=== PATIENT | female | born 1985 | race Caucasian/White ===

== ENCOUNTER 2016-12-02 16:03 | Outpatient (CLI) | payer MEDICAID ==
[~2016-12-02] VITALS: Ht 160 cm; Wt 90.4 kg
[~2016-12-02 16:03] MED LIST: ADVIL PRN
[2016-12-02] MEDS ORDERED: PREN-47 PO (16:21)
[2016-12-02 16:22] VITALS: BP 117/69; PULSE 80; RESP 18; Ht 160 cm; Wt 90.4 kg
--- NOTE | 2016-12-02 16:58 | RADRPT ---
PROCEDURE: US OB biophysical profile. CLINICAL INDICATION: decreased movements TECHNIQUE: Multiple sonographic images of the pelvis were obtained. The images were reviewed on a PACS workstation. COMPARISON: No prior studies are available for comparison. FINDINGS: There is a single viable intrauterine gestation. Cardiac activity is present with 137 beats per min shannon. There is a vertex presentation. The placenta is posterior. There is no evidence of placental abruption. There is a slightly increased amount of amniotic fluid with an FRANCISCO = 23.6 cm. Biophysical profile: movement 2/2 tone 2/2. breathing 2/2 FRANCISCO 2/2 Total 10/07 RPTAT: AA . IMPRESSION: Normal biophysical profile. Polyhydramnios. . .Gadiel Mendoza MD, Date Time Electronically viewed and signed by .Gadiel Mendoza MD, MD on 12/02/2016 16:58 .S/
--- NOTE | 2016-12-02 18:05 | TRIAGE ---
OB Triage Datetime Report Generated by CPN: 12/02/2016 18:05 Datetime: 12/02/2016 18:00 Stage of : OB Triage Maternal Assessment Level of Consciousness: Fully Conscious Labor Evaluation Frequency: 3UC/HR Monitor Mode: External Duration (sec)2399: 50-70 Quality: Mild Resting Tone [place]: Relaxed Heart Rate FHR Baseline Rate: 135 Monitor Mode: External US Variability: Moderate 6-25 bpm Accelerations: 15X15 Decelerations: None Pain Assessment Pain Scale: 2 Pain Presence: Intermittent Pain Type: Cramping Pain Location: Abdomen Pain Goal: 3 Pain Relief Measures: Comfort Measures Vaginal Exam Membrane Status: Intact Vaginal Bleeding: None Datetime: 12/02/2016 17:00 Stage of : OB Triage Maternal Assessment Level of Consciousness: Fully Conscious Labor Evaluation Frequency: 2UC/HR Monitor Mode: External Duration (sec)2399: 50-60 Quality: Mild Resting Tone [place]: Relaxed Heart Rate FHR Baseline Rate: 135 Monitor Mode: External US Variability: Moderate 6-25 bpm Accelerations: 15X15 Decelerations: None Category: Category I Pain Assessment Pain Scale: 2 Pain Presence: Intermittent Pain Type: Cramping Pain Location: Abdomen Pain Goal: 3 Pain Relief Measures: Comfort Measures Vaginal Exam Membrane Status: Intact Vaginal Bleeding: None Datetime: 12/02/2016 16:19 Assessment Type: Triage Maternal Assessment Level of Consciousness: Fully Conscious DTR's/Clonus: DTRs 2+; No Clonus Headache: Denies Blurred Vision: No Respiratory Effort: Unlabored; Regular Rhythm; Equal Expansion Breath Sounds, Left: Clear and Equal Breath Sounds, Right: Clear and Equal Nausea/Vomiting: Denies RUQ Epigastric Pain: Denies Lower Extremities Edema: None Degree: None Upper Extremities Edema: None Degree: None Facial Edema: None Fall Risk Assessment History of Falling: (0) No Secondary Diagnosis: (0) No Ambulatory Aid: (0) Bedrest/Nurse Assist IV Therapy: (0) No Gait: (0) Normal/Bedrest/Immobile Mental Status: (0) Oriented to Own Ability Fall Score: 0 Fall Risk Score Definition: No Risk: No action required Datetime: 12/02/2016 16:18 Time of Arrival: 12/02/2016 15:50 EGA: 38.3 Arrived By: Ambulatory Arrived From: Other Unit in Hospital Chief Complaint: PT SENT FROM NST CLINIC FOR NON REACTIVE NST Movement: Decreased Contractions: Denies/Absent Rupture of Membranes: Denies Vaginal Bleeding: None Vaginal Discharge: Denies Recent Sexual Intercouse: Denies Abdominal Trauma: Not Applicable Patient Complaints: None Time Provider Notified: 12/02/2016 15:50 Provider Notified: [facility] Initial Plan: BPP/NST Datetime: 12/02/2016 16:11 Monitor Mode: External US
--- NOTE | 2016-12-02 18:25 | PN ---
Triage Information Date/Time Reason for visit: Uterine contractions Weeks of Gestation 38 weeks 3 days /Para Diabetes: none Hypertention: none Objective Vital Signs Date Time Temp Pulse Resp B/P Pulse Ox O2 Delivery O2 Flow Rate FiO2 12/02/16 16:22 98.3 80 18 117/69 98 Room Air Heart Rate: 130's Contractions: >10 Minutes Apart Results/Medications Imaging Results Biophysical profile10/07 lipid instructions given advised follow-up at the clinic return to the hospital if any contractions or any other concerns Disposition: Discharge Assessment/Plan Labor instructions given advised if no further contraction continue follow-up at the clinic AMMY WRAY MD Dec 02, 2016 18:25
== END 2016-12-02 18:15 | disposition home or self-care (01) ==
LOC: OBT 16:03 → L-D 16:04 → OBT 18:15
PROVIDERS: ATTEND Obstetrics & Gynecology
DX: O62.9 Abnormality of forces of labor, unspecified (principal); Z3A.38 38 weeks gestation of pregnancy
CPT/HCPCS: 76818; Z7500; G0463

== ENCOUNTER 2016-12-06 05:20 | Inpatient (IN) | payer MEDICAID ==
[2016-12-06] VITALS (10 sets, daily range): BP systolic 109–139; BP diastolic 64–87; PULSE 69–94; RESP 18–20; Ht 157.5 cm; Wt 90.1 kg
[~2016-12-06] VITALS: Ht 157.5 cm; Wt 90.1 kg
[~2016-12-06 05:20] MED LIST changes: -ADVIL PRN; +PREN-47 PO
[2016-12-06] MEDS ORDERED: CEFAZOLIN 2 GM/50 ML (PMX) 50 ML IV SCH (06:00)
[2016-12-06] MEDS ORDERED: METHYLERGONOVINE 0.2 MG INJ IM PRN ×2 (06:00→12:30)
[2016-12-06] MEDS ORDERED: OXYTOCIN 30 UNITS/LR 500 ML IV SCH (06:00)
[2016-12-06] MEDS ORDERED: OXYTOCIN 30 UNITS/LR 500 ML IV PRN ×2 (06:00→12:30)
[2016-12-06] MEDS ORDERED: MISOPROSTOL 200 MCG TAB PR PRN ×2 (06:00→12:30)
[2016-12-06] MEDS ORDERED: CARBOPROST 250 MCG INJ IM PRN ×2 (06:00→12:30)
[2016-12-06] MEDS ORDERED: LACTATED RINGER'S 1,000 ML IV ONE (06:30)
[2016-12-06] MEDS ORDERED: LACTATED RINGER'S 1,000 ML IV SCH (06:30)
[2016-12-06 06:34] LABS: BASOPHILS % 0.2 % (0.0-2.0); EOSINOPHILS # 0.1 10^3/ul (0.0-0.5); EOSINOPHILS % 0.6 % (0.0-7.0); HEMATOCRIT 37.3 % (37.0-47.0); HEMOGLOBIN 12.8 g/dl (12.0-16.0); LYMPHOCYTES # 4.1 10^3/ul (0.8-2.9); LYMPHOCYTES % 35.9 % (15.0-51.0); MEAN CORPUSCULAR HEMOGLOBIN 29.4 pg (29.0-33.0); MEAN CORPUSCULAR HGB CONC 34.3 g/dl (32.0-37.0); MEAN CORPUSCULAR VOLUME 85.6 fl (82.0-101.0); MEAN PLATELET VOLUME 9.5 fl (7.4-10.4); MONOCYTE # 0.7 10^3/ul (0.3-0.9); MONOCYTES % 6.5 % (0.0-11.0); NEUTROPHIL # 6.4 10^3/ul (1.6-7.5); NEUTROPHILS % 56.4 % (39.0-77.0); PLATELET COUNT 263 10^3/UL (140-415); RED BLOOD COUNT 4.36 10^6/ul (4.20-5.40); RED CELL DISTRIBUTION WIDTH 13.8 % (11.5-14.5); WHITE BLOOD COUNT 11.4 10^3/ul (4.8-10.8)
[2016-12-06 06:55] LABS: INR 0.94; PROTIME 12.6 Sec (12.2-14.2)
[2016-12-06] MEDS ORDERED: EPHEDrine SULFATE 50 MG/5 ML SYG ONE (07:00)
[2016-12-06] MEDS ORDERED: CEFAZOLIN 1 GM INJ ONE (07:00)
[2016-12-06] MEDS ORDERED: OXYTOCIN 30 UNITS/LR 500 ML BAG IV ONE (07:00)
[2016-12-06] MEDS ORDERED: morphine SULFATE/PF (10 MG/10 ML) INJ ONE (08:44)
[2016-12-06] MEDS ORDERED: PHENYLephrine (100 MCG/ML) 5ML SYG ONE ×2 (08:45→09:41)
--- NOTE | 2016-12-06 09:56 | HP ---
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 Rubella: immune RPR/VDRL: Negative GBS Status: Negative HBsAG: Negative OB Admission Exam Vital Signs Vital Signs Vital Signs Date Time Temp Pulse Resp B/P Pulse Ox O2 Delivery O2 Flow Rate FiO2 12/06/16 06:03 98.2 85 18 129/84 Room Air Physical Exam HEENT: WNL Heart: Rhythm Normal Lungs: Clear, Equal Abdomen: WNL Extremities: Normal Reflexes: Normal Cervical Dilatation: None Membranes: Intact Heart Rate: 130's Accelerations: Accelerations Present Varibility: Moderate Contractions on Admission: >10 Minutes Apart Intensity: Mild Last 72 hours Lab Results CBC & BMP 12/06/16 06:00 OB Assessment/Plan Reason for admission: other (31 y/o G2 P/1 hx of previous c section admitted at 39 weeks gestation for repeat c section) Induction Method: other (32 weeks female admitted at 39 weeks gestation EDC 12/13/2016 previous undergo repeat generally signed consent for tubal ligation but changed her mind prior to the surgery application of the including but not limited to bowel and bladder injury infection hemorrhage and hematoma, is been explained to the patient she would like to proceed with the operation) AMMY WRAY MD Dec 06, 2016 08:58
--- NOTE | 2016-12-06 10:13 | OPR ---
Operative Report Planned Procedure Free Text/Dictation 31 years old history of previous admitted at 39 weeks gestation for repeat Procedure date Dec 06, 2016 Procedure(s) Repeat Performed by see signature line Assisting provider: ELOISA PARHAM MD Anesthesiologist: JUSTEN FERMIN Pre-procedure diagnosis 39 weeks . Previous admitted for repeat section Anesthesia Type: spinal Procedure Description Under satisfactory [spinal] anesthesia, the patient was prepped and draped and placed in a supine position, tilted to the left. Pfannenstiel incision was made , carried through the subcutaneous tissue. Bleeders brought under control with electrocautery. Fascia incised to the length of the incision. Rectus muscles from the fascia, divided midline. Peritoneum exposed, entered through a transverse incision. Exploration of abdomen revealed gravid uterus normal- appearing tubes and ovaries. Bladder flap was developed. Transverse incision was made in the lower segment of the uterus. Amniotic sac ruptured. Clear amniotic fluid noted. Light baby boy was delivered from unengaged vertex [] Nasal oropharyngeal suction was performed. baby handed to the team for immediate attention patient received 20 units of. Pitocin, placenta was delivered manually intact. Uterine cavity was cleaned with wet sponge and drainage established. Uterus closed in 2 layers using Monocryl #1 in continuous fashion. Peritoneal cavity irrigated with warm saline. Sponge, needle and instrument count reported to be correct. Abdominal peritoneum closed with [2-0 chromic catgut] continuously. Rectus muscle approximated with [2-0 chromic catgut]. Fascia closed with [#1 PDS], cutaneous tissue approximated with few interrupted 2-0 chromic catgut suture skin closed with N sorb. Estimated blood loss [600]mL. Urine bag contained [200]mL of clear urine patient tolerated procedure well transferred to recovery room in good condition. Post-Procedure Findings: Live Baby boy 9 and 9 Estimated blood loss: other (600 cc) Specimen(s): no Grafts/Implants: no Complication(s): no Pt Condition post procedure: stable Physician Certification I, the undersigned physician, hereby certify that I have discussed the procedure described in this consent form with this patient (or the patient's legal leasing representative), including: * The risk and benefits of the procedure; * Any adverse reactions that may reasonably be expected to occur; * Any alternative efficacious methods of treatment which may be medically viable ; * The potential problems that may occur during recuperation; * Potential for blood transfusion and associated risks/benefits; and * Any research or economic interest I may have regarding this treatment. I further certify that the patient/legally responsible person was encouraged to ask question and that all questions were answered. AMMY WRAY MD Dec 06, 2016 10:13
[2016-12-06] MEDS ORDERED: ZOLPIDEM 5 MG TAB PO PRN (12:00)
[2016-12-06] MEDS ORDERED: METOCLOPRAMIDE 10 MG INJ IV PRN (12:00)
[2016-12-06] MEDS ORDERED: DIPHENHYDRAMINE 50 MG INJ IV PRN ×2 (12:00)
[2016-12-06] MEDS ORDERED: HYDROmorphONE 1 MG/ML SYG IV PRN ×2 (12:00)
[2016-12-06] MEDS ORDERED: FENTAnyl 50 MCG/ML VIAL IV PRN ×2 (12:00)
[2016-12-06] MEDS ORDERED: KETOROLAC 30 MG INJ IV PRN (12:00)
[2016-12-06] MEDS ORDERED: NALOXONE (0.4 MG/ML) INJ IV PRN (12:00)
[2016-12-06] MEDS ORDERED: ONDANSETRON 4 MG INJ IV PRN ×2 (12:00)
[2016-12-06] MEDS ORDERED: HYDROmorphONE (0.2 MG/ML) 10ML SYG IV PRN ×2 (12:00)
[2016-12-06] MEDS ORDERED: LANOLIN 7 GM TUBE TOP PRN (12:30)
[2016-12-06] MEDS ORDERED: CEFAZOLIN 1 GM/50 ML (PMX) 50 ML IVPB SCH (12:30)
[2016-12-06] MEDS ORDERED: OXYCODONE/ACETAMINOPHEN (5/325) TAB PO PRN ×2 (12:30)
[2016-12-06] MEDS ORDERED: HYDROCODONE/APAP (5/325) TAB PO PRN (12:30)
[2016-12-06] MEDS: OXYTOCIN 30 UNITS/LR 500 ML IV SCH ×3 (14:21→22:41)
[2016-12-07] MEDS: OXYTOCIN 30 UNITS/LR 500 ML IV SCH ×4 (02:48→12:12)
[2016-12-07] MEDS: KETOROLAC 30 MG INJ IV PRN ×2 (04:02→09:56)
[2016-12-07 04:05] VITALS: BP 108/63; PULSE 75; RESP 19
[2016-12-07 08:00] VITALS: BP 116/76; RESP 18
[2016-12-07 08:41] LABS: BASOPHILS % 0.2 % (0.0-2.0); EOSINOPHILS % 0.3 % (0.0-7.0); HEMATOCRIT 32.5 % (37.0-47.0); HEMOGLOBIN 11.3 g/dl (12.0-16.0); MEAN CORPUSCULAR HEMOGLOBIN 30.2 pg (29.0-33.0); MEAN CORPUSCULAR HGB CONC 34.8 g/dl (32.0-37.0); MEAN CORPUSCULAR VOLUME 86.9 fl (82.0-101.0); MEAN PLATELET VOLUME 9.4 fl (7.4-10.4); MONOCYTE # 0.8 10^3/ul (0.3-0.9); MONOCYTES % 6.5 % (0.0-11.0); NEUTROPHIL # 8.6 10^3/ul (1.6-7.5); NEUTROPHILS % 68.6 % (39.0-77.0); PLATELET COUNT 229 10^3/UL (140-415); RED BLOOD COUNT 3.74 10^6/ul (4.20-5.40); RED CELL DISTRIBUTION WIDTH 13.6 % (11.5-14.5); WHITE BLOOD COUNT 12.5 10^3/ul (4.8-10.8)
[2016-12-07] MEDS: SENNA/DOCUSATE NA (8.6MG/50MG) TAB PO SCH ×2 (09:01→21:44)
[2016-12-07] MEDS: IBUPROFEN 600 MG TAB PO SCH ×3 (12:00→23:26)
--- NOTE | 2016-12-07 12:21 | QN ---
Documentation Comment PoD#1 is stable afebrile No VB +Flatus+Adequate urine VS stable Gen NAD Abd soft NT ND dressing to be removed Genitalia No blood at perinium --->Ambulation --->regular diet GAYE LUCAS M.D. Dec 07, 2016 12:21
[2016-12-07] MEDS: HYDROCODONE/APAP (5/325) TAB PO PRN ×2 (13:57→17:42)
[2016-12-07 16:00] VITALS: BP 120/75; PULSE 75; RESP 18
[2016-12-07 20:00] VITALS: BP 127/76; PULSE 89; RESP 20
[2016-12-08] MEDS: HYDROCODONE/APAP (5/325) TAB PO PRN ×3 (04:02→21:25)
[2016-12-08 04:59] VITALS: BP 119/64; PULSE 69; RESP 20
[2016-12-08] MEDS: IBUPROFEN 600 MG TAB PO SCH ×3 (05:14→17:24)
[2016-12-08 08:30] VITALS: BP 124/76; RESP 16
[2016-12-08] MEDS: SENNA/DOCUSATE NA (8.6MG/50MG) TAB PO SCH ×2 (09:00→21:00)
[2016-12-08] MEDS ORDERED: INFLUENZA VIRUS VACCINE 0.5 ML (DISPENSING) IM* ONE (09:00)
--- NOTE | 2016-12-08 12:09 | CONS ---
Date/Time of Note Date/Time of Note DATE: 12/08/16 TIME: 12:08 Consultation Date/Type/Reason Admit Date/Time Dec 06, 2016 at 05:20 Initial Consult Date 12/07/16 Type of Consultation: Anesthesiology Reason for Consultation follow up 24 HR Interval Summary Free Text/Dictation Pt seen and examined on 12/07/16 is POD#1 s/p repeat c/s. Pt had spinal duramorph injection and states states her pain is adequately controlled. No N/V/ D/C/CAMERON/Numbness in lower extremities. Will follow up. Constitutional: improved, no complaints Exam/Review of Systems Vital Signs Vitals Vital Signs Date Time Temp Pulse Resp B/P Pulse Ox O2 Delivery O2 Flow Rate FiO2 12/08/16 08:30 99.1 16 124/76 Room Air 12/08/16 04:59 69 12/06/16 12:00 98 Intake and Output 12/07/16 12/07/16 12/08/16 14:59 22:59 06:59 Intake Total 720 ml Output Total 1400 ml Balance -680 ml Results Result Diagram: 12/07/16 0807 Results 24 hrs Laboratory Tests Test 12/07/16 15:12 12/07/16 20:30 12/08/16 06:36 12/08/16 08:03 Bedside Glucose 137 120 89 Lab Scanned Report REFERENCE LAB Test 12/08/16 11:25 Bedside Glucose 77 Medications Medications Current Medications Acetaminophen/ Hydrocodone Bitart ([place] (5/325)) 1 tab Q4H PRN PO PAIN LEVEL 4 -6 Last administered on 12/08/16 04:02; Admin Dose 1 TAB; Start 12/06/16 at 12: 30 Acetaminophen/ Hydrocodone Bitart ([place] (5/325)) 2 tab Q4H PRN PO PAIN LEVEL 7 -10; Start 12/06/16 at 12:30 Oxycodone/ Acetaminophen (Percocet (5/ 325)) 1 tab Q4H PRN PO PAIN LEVEL 4-6; Start 12/06/16 at 12:30 Oxycodone/ Acetaminophen (Percocet (5/ 325)) 2 tab Q4H PRN PO PAIN LEVEL 7-10; Start 12/06/16 at 12:30 Ibuprofen (Motrin) 600 mg Q6 PO Last administered on 12/08/16 12:05; Admin Dose 600 MG; Start 12/07/16 at 12:00 Simethicone (Mylicon) 160 mg Q8H PRN PO DISTENSION/GAS/BLOATING; Start at 12:30 Senna/Docusate Sodium (Senokot-S) 1 tab BID PO Last administered on 12/07/16 21:44; Admin Dose 1 TAB; Start 12/07/16 at 09:00 Diphtheria/ Tetanus/Acell Pertussis 0.5 ml 0.5 ml ONCE ONCE IM* ; Start at 09:00; Stop 12/09/16 at 09:01 Oxytocin/Lactated Ringer's 500 ml @ 0 mls/hr ONCE PRN IV For Hemorrhage Management; Start 12/06/16 at 12:30 Methylergonovine Maleate (Methergine) 0.2 mg ONCE PRN IM VAGINAL BLEEDING; Start 12/06/16 at 12:30 Carboprost Tromethamine (Hemabate) 250 mcg ONCE PRN IM VAGINAL BLEEDING; Start 12/06/16 at 12:30 Misoprostol (Cytotec) 1,000 mcg ONCE PRN [place] VAGINAL BLEEDING; Start 12/06/16 at 12:30 JUSTEN FERMIN Dec 08, 2016 12:09
[2016-12-08 16:00] VITALS: BP 121/70; RESP 19
--- NOTE | 2016-12-08 16:04 | QN ---
Documentation Comment Post day 2 VSS Afebrile Abdomen soft, incision dry, good bowel sounds, patient had bowel movement, Extremity normal Plan of a.m. discharge discussed with the patient AMMY WRAY MD Dec 08, 2016 16:04
--- NOTE | 2016-12-08 16:06 | QN ---
Documentation Comment Post day 2 Afebrile VSs Abdomen soft Uterus firm Incision dry Good bowel sounds, patient had normal bowel movement Extremities no Plan of a.m. discharge discussed with the patient AMMY WRAY MD Dec 08, 2016 16:06
[2016-12-08 20:30] VITALS: BP 123/65; PULSE 78; RESP 16
[2016-12-09] MEDS: IBUPROFEN 600 MG TAB PO SCH ×4 (00:04→18:36)
[2016-12-09 04:30] VITALS: BP 117/71; PULSE 78; RESP 18
[2016-12-09 08:15] VITALS: BP 121/82; PULSE 84; RESP 18
[2016-12-09] MEDS: SENNA/DOCUSATE NA (8.6MG/50MG) TAB PO SCH ×3 (08:53→22:33)
[2016-12-09] MEDS ORDERED: DIPHTH/TET/ACEL PERTUSS (ADULT) 0.5 ML VIAL IM* ONE (09:00)
--- NOTE | 2016-12-09 13:12 | QN ---
Documentation Comment Post date 3 Afebrile Vital signs are stable Abdomen soft good bowel sounds had bowel movement Extremities normal Ambulation encouraged Plan of a.m. discharge discussed with the patient AMMY WRAY MD Dec 09, 2016 13:12
[2016-12-09 16:38] VITALS: BP 117/78; PULSE 76; RESP 17
[2016-12-09 20:30] VITALS: BP 121/87; PULSE 76; RESP 16
[2016-12-10] MEDS: IBUPROFEN 600 MG TAB PO SCH ×3 (00:50→12:57)
[2016-12-10 04:30] VITALS: BP 110/66; PULSE 80; RESP 15
[2016-12-10 08:30] VITALS: BP 117/69; PULSE 80; RESP 18
[2016-12-10] MEDS: SENNA/DOCUSATE NA (8.6MG/50MG) TAB PO SCH (09:08)
[2016-12-10 16:41] VITALS: BP 116/68; RESP 18
--- NOTE | 2016-12-10 17:13 | DS ---
Date/Time of Note Date/Time of Note DATE: 12/10/16 TIME: 17:11 Discharge Summary Admission/Discharge Info Admit Date/Time Dec 06, 2016 at 05:20 Discharge Date/Time December 10, 2016 at 1710 Discharge Diagnosis Post repeat day 3 Procedures Repeat Hx of Present Illness 39 weeks history of previous Hospital Course Satisfactory good recovery Home Meds Reported Medications Ibd67-Wytb-Apwzv Acid (Prenata Chewable) 1 Each Tab.chew, 1 TAB PO DAILY, TAB.CHEW 12/02/16 Follow-up Plan Post instructions given to the patient recommended to make appointment to be seen at the clinic in 1 week Primary Care Provider Care Physician No Primary Time spent on discharge: < 30 minutes Pending Labs Laboratory Tests Test 12/09/16 18:35 12/09/16 20:46 12/10/16 08:36 12/10/16 10:37 Bedside Glucose 104mg/dL (70-220) 92mg/dL (70-220) 84mg/dL (70-220) 76mg/dL (70-220) Test 12/10/16 14:08 Bedside Glucose 95mg/dL (70-220) AMMY WRAY MD Dec 10, 2016 17:13
--- NOTE | 2016-12-11 14:49 | NSTRPT ---
NST Information Datetime Report Generated by CPN: 12/11/2016 14:49 Datetime: 12/02/2016 13:46 NST Information EGA: 38.3 Test Number: 2 Time on Monitor: 12/02/2016 14:04 Time off Monitor: 12/02/2016 15:30 NST Duration (Min): 86 Reason for NST: Diabetes Mellitus; Other Reason for NST Other: A1DM Pulse: 75 Resp: 20 SBP: 125 DBP: 69 Test Evaluation NST Interventions: PO Hydration; Reposition Patient; Acoustic Stimulation Patient States Movement: Present Contraction Frequency: occasional FHR Baseline : 150 Variability: Moderate 6-25bpm Accelerations: 10X10 Decelerations: None FHR Category: Category I NST Results: Questionable Comments: To u/s. FRANCISCO 18.2, cephalic presentation. EFM on. Pt to triage for extended monitoring due to accels not meeting 15x15 criteria. Pt has no questions. 1500-NST reviewed by Dr Greenwood, recommends extended monitoring. Dr Gonzalez paged. [id number] to Dr Gonzalez, order received to send pt to triage for NST/BPP and extended EFM, Report called to Giovanna. [id number]-Pt to triage, denies further questions, and has follow up NST appt for 12/05 at 1300 Electronically Signed By E-Signature: with User ID: [id number] Datetime: 11/25/2016 13:19 NST Information EGA: 37.3 Datetime: 11/25/2016 13:12 NST Duration (Min): 60
== END 2016-12-10 17:57 | disposition home or self-care (01) | DRG 766 ==
LOC: L-D 05:20 → PP1 12:51
PROVIDERS: ADMIT Obstetrics & Gynecology; ATTEND Obstetrics & Gynecology
PROC: 3E0P3VZ Introduction of Hormone into Female Reproductive, Percutaneous Approach (ICD-10-PCS; 2016-12-06)
PROC: 10D00Z1 Extraction of Products of Conception, Low, Open Approach (ICD-10-PCS; principal; 2016-12-06 08:00)
DX: O34.211 Maternal care for low transverse scar from previous cesarean delivery (principal); E66.01 Morbid (severe) obesity due to excess calories; O24.429 Gestational diabetes mellitus in childbirth, unspecified control; O99.214 Obesity complicating childbirth; Z68.36 Body mass index [BMI] 36.0-36.9, adult; Z37.0 Single live birth; Z3A.39 39 weeks gestation of pregnancy
CPT/HCPCS: 82962; 85025; 85610; 85730; 86592; 86850; 86900; 86901; 90686; 90715; 99464; J0690; J1885; J2274; J2370; J2405; J2590; J7120

== ENCOUNTER 2018-07-16 17:04 | Inpatient (IN) | payer MEDICAID ==
[~2018-07-16] VITALS: Ht 160 cm; Wt 94.4 kg
[2018-07-16 17:26] VITALS: BP 121/76; PULSE 76; RESP 18; Ht 160 cm; Wt 94.4 kg
[2018-07-16] MEDS: LACTATED RINGER'S 1,000 ML IV SCH ×2 (19:05→22:24)
[2018-07-16] MEDS ORDERED: OXYTOCIN 30 UNITS/LR 500 ML BAG IV ONE (21:00)
[2018-07-16] MEDS ORDERED: METHYLERGONOVINE 0.2 MG INJ ONE (21:00)
[2018-07-16] MEDS ORDERED: CARBOPROST 250 MCG INJ ONE (21:00)
--- NOTE | 2018-07-16 21:56 | HP ---
Date/Time of Note Date/Time of Note DATE: 07/16/18 TIME: 21:51 OB - History Hx of Present Free Text/Dictation c/o contractionts and decrease movements Last Menstrual Period: Nov 17, 2017 Estimated Due Date: Aug 24, 2018 Care: Good Care Obstetrical Complications: Gestational Diabetes Past Family/Social History * Past Medical, Surgical, Family and Obstetric Histories reviewed from chart. OB Admission Exam Vital Signs Vital Signs Vital Signs Date Temp Pulse Resp B/P (MAP) Pulse Ox O2 O2 Flow FiO2 Time Delivery Rate 07/16/18 98.0 76 18 121/76 17:26 (91) Physical Exam HEENT: WNL Abdomen: WNL Extremities: Normal Cervical Dilatation: None Membranes: Intact Contractions on Admission: 6-10 Minutes Apart Last 72 hourBlood Glucose Bedside Glucose - 72 Hours Test 07/16/18 18:22 Bedside Glucose 95 mg/dL (70-220) OB Assessment/Plan Reason for admission: other (33 years old IUP 34 3/7, decrease movements, r/o pretherm labor, polyhidramnous, BPP 8/8) Plan: Other (Admit ton L@D, observation, IV hydratin, accu check, NST, repeat BPP tmorrow, UA/UC) BEULAH JUAN MD July 16, 2018 21:56
[2018-07-16] MEDS ORDERED: ACETAMINOPHEN 325 MG TAB PO PRN (22:30)
[2018-07-17] VITALS (11 sets, daily range): BP systolic 118–145; BP diastolic 69–87; PULSE 106–129; RESP 18–20
[2018-07-17] MEDS: LACTATED RINGER'S 1,000 ML IV SCH ×5 (02:30→15:23)
[2018-07-17] MEDS ORDERED: ACCU-CHEK XX SCH ×2 (06:00→09:35)
[2018-07-17] MEDS ORDERED: EPHEDrine SULFATE 50 MG/5 ML SYG ONE (07:00)
[2018-07-17] MEDS ORDERED: BETAMET NA PHOS/AC(6 MG/ML) 2 ML INJ SYG IM ONE (08:00)
[2018-07-17] MEDS ORDERED: GLUCOSE GEL 15 GRAM TUBE BUCCAL PRN (09:30)
[2018-07-17] MEDS ORDERED: GLUCAGON 1 MG INJ IM PRN (09:30)
[2018-07-17] MEDS ORDERED: DEXTROSE 50% 50 ML SYRINGE IV PRN ×2 (09:30)
[2018-07-17] MEDS ORDERED: GLUCOSE GEL 15 GRAM TUBE PO PRN ×2 (09:30)
--- NOTE | 2018-07-17 10:04 | PN ---
Date/Time of Note Date/Time of Note DATE: 07/17/18 TIME: 10:03 OB Subjective Subjective Subjective 33-year-old 3 para 2 at 34 weeks and 5 days of gestation with estimated date of delivery August 24, 2018 Patient presents with chief complaint of decreased movement, noted to have nonreactive NST She presented with uterine contractions, denies any vaginal bleeding or leaking fluid She reports positive movement Patient is gestational diabetic diet controlled Past obstetrical history significant for x2 OB Objective Objective Objective PROCEDURE: US OB biophysical profile. CLINICAL INDICATION: decreased movements, labor TECHNIQUE: Multiple sonographic images of the pelvis were obtained. The image s were reviewed on a PACS workstation. COMPARISON: US PELVIS 07/16/2018 FINDINGS: There is a single live intrauterine gestation. Cardiac activity is present with 146 beats per minute. There is a vertex presentation. The placenta is anterior. There is no evidence of placental abruption. FRANCISCO = 27.1 cm. Biophysical profile: movement 2/2 tone 2/2. breathing 2/2 FRANCISCO 2/2 Total 10/07 RPTAT: AA . IMPRESSION: Normal biophysical profile. Polyhydramnios, worsened. . .Gadiel Mendoza MD, Date Time Electronically viewed and signed by .Gadiel Mendoza MD, on 07/17/2018 07:37 .S/ CC: BEULAH JUAN MD [phone] PROCEDURE: ULTRASOUND OBSTETRICAL CLINICAL INDICATION: 33-year-old female for size and date determination. TECHNIQUE: Multiple sonographic images of the pelvis and gravid uterus were obtained. The images were reviewed on a PACS workstation. COMPARISON: Ultrasound biophysical profile obtained concurrently; ultrasound OB July 16, 2018. FINDINGS: Cervix: The cervix is closed with a length of 4.1 cm. Gestation: There is a single viable intrauterine gestation. Cardiac activity is present with 154 beats per minute. There is a vertex presentation. Placenta: The placenta is anterior. There is no evidence for an abruption or placenta previa. Amniotic Fluid: There is a increased amount of amniotic fluid with an FRANCISCO = 27.2 cm. The maximal vertical pocket is 11.3 cm. Measurements: BPD = 8.55 cm 34 weeks 3 days HC = 30.89 cm 34 weeks 3 days AC = 34.81 cm 38 weeks 5 days FL = 6.86 cm 35 weeks 2 days Gestational age: AUA estimated gestational age: 35 weeks and 5 days LMP estimated gestational age: 34 weeks and 4 days AUA estimated date of delivery: August 16, 2018 EFW = 6lb 12oz, 3066 +/- 460 g, 96%ile based on LMP age. IMPRESSION: 1. Single viable intrauterine gestation of 35 weeks 5 days with vertex presentation. Note that the abdominal circumference is enlarged which may be secondary to maternal gestational diabetes. Clinical correlation is necessary. 2. The estimated weight is 3066 +/- 460 g (6 lb 12 oz). The GP is 96%. 3. Polyhydramnios. .Jesus Domingo MD, Date Time Electronically viewed and signed by .Jesus Domingo MD, on 07/17/2018 09:15 .M/ CC: ADELE PERAZA MD [phone] HEENT: WNL Heart: Rhythm Normal Lungs: Clear, Equal Abdomen: WNL Extremities: Normal Reflexes: Normal Cervical Dilatation: None Membranes: Intact Heart Rate: 140's Accelerations: Accelerations Present Decelerations: No Decelerations Varibility: Moderate Contractions on Admission: 6-10 Minutes Apart Intensity: Mild OB Assessment/Plan Reason for admission: other ( contractions, nonreactive NST, polyhydramnios) Other plan: 3 para 2 at 34 weeks and 5 days of gestation with GDM A1 admitted for contractions, polyhydramnios, nonreactive NST Continuous heart rate monitoring Steroids for lung maturity Perinatology consultation Copies To: CC: IRIS REBOLLEDO ; ADELE PERAZA MD July 17, 2018 10:04
[2018-07-17] MEDS ORDERED: MAGNESIUM SULFATE 20 GM/500 ML 500 ML IV SCH (10:17)
[2018-07-17] MEDS ORDERED: MAGNESIUM SULFATE 4 GM/100 ML 100 ML IV SCH (10:30)
[2018-07-17] MEDS ORDERED: CA GLUCONATE (GM) 10% 10ML INJ IV PRN (10:30)
[2018-07-17] MEDS ORDERED: INSULIN ASPART [NOVOLOG] 3 ML PEN SC SCH (13:00)
[2018-07-17] MEDS ORDERED: NIFEdipine 10 MG CAP PO SCH (14:00)
[2018-07-17] MEDS ORDERED: TERBUTALINE 1 MG/ML INJ SC ONE (15:30)
[2018-07-17] MEDS ORDERED: OXYTOCIN 30 UNITS/LR 500 ML IV SCH ×2 (15:30→18:23)
[2018-07-17] MEDS ORDERED: CARBOPROST 250 MCG INJ IM PRN ×2 (15:30→18:30)
[2018-07-17] MEDS ORDERED: MISOPROSTOL 200 MCG TAB PR PRN ×2 (15:30→18:30)
[2018-07-17] MEDS ORDERED: CEFAZOLIN 2 GM/50 ML (PMX) 50 ML IVPB SCH (15:30)
[2018-07-17] MEDS ORDERED: OXYTOCIN 30 UNITS/LR 500 ML IV PRN ×2 (15:30→18:30)
--- NOTE | 2018-07-17 16:15 | PREAC ---
Date/Time of Note Date/Time of Note DATE: 07/17/18 TIME: 16:13 Anesthesia Eval and Record Evaluation Time Pre-Procedure Interview DATE: 07/17/18 TIME: 16:13 Age 33 Sex female NPO: 8 hrs Preoperative diagnosis in labor with previous C/S Planned procedure Repeat C/S Past Medical History Past Medical History: Includes GI: Obesity : : (3), Para: (2), Gestational diabetes Surgery & Anesthesia Issues No known issue Meds Anticoagulation: No Beta Sangeetha within 24 hr: No Reason Beta Sangeetha not given: Pt. not on B-Sangeetha Reported Medications Zuj21-Nydt-Nhhty Acid (Prenata Chewable) 1 Each Tab.chew, 1 TAB PO DAILY, TAB.CHEW 12/02/16 Current Medications Lactated Ringer's 1,000 ml @ 250 mls/hr Q4H IV Last administered on 07/17/18at 15:23; Admin Dose 250 MLS/HR; Start 07/16/18 at 19:00 Lactated Ringer's 1,000 ml @ 125 mls/hr Q8H IV Last administered on 07/17/18at 06:09; Admin Dose 125 MLS/HR; Start 07/16/18 at 22:03 Prenat Multivit/ Wireless Network Engineer/Iron/Folic Ac () 1 tab DAILY PO ; Start 07/17/18 at 09:00 Acetaminophen (Tylenol Tab) 650 mg Q4H PRN PO .PAIN OR TEMP; Start 07/16/18 at 22:30 Diagnostic Test (Pha) (Accu-Chek) 1 ea FASTING BLOOD SUGAR XX Last administered on 07/17/18at 07:25; Admin Dose 1 EA; Start 07/17/18 at 06:00 Diagnostic Test (Pha) (Accu-Chek) 1 ea 2 HOURS AFTER MEALS XX ; Start 07/17/18 at 09:35 Insulin Aspart (Novolog Insulin Pen) Check Blood gluc... Q4 SC ; Start 07/17/18 at 13:00 Miscellaneous Information 1 ea NOTE XX ; Start 07/17/18 at 09:30 Glucose (Glutose) 15 gm Q15M PRN PO DECREASED GLUCOSE; Start 07/17/18 at 09:30 Glucose (Glutose) 22.5 gm Q15M PRN PO DECREASED GLUCOSE; Start 07/17/18 at 09:30 Dextrose (D50w Syringe) 25 ml Q15M PRN IV DECREASED GLUCOSE; Start 07/17/18 at 09:30 Dextrose (D50w Syringe) 50 ml Q15M PRN IV DECREASED GLUCOSE; Start 07/17/18 at 09:30 Glucagon (Glucagen) 1 mg Q15M PRN IM DECREASED GLUCOSE; Start 07/17/18 at 09:30 Glucose (Glutose) 15 gm Q15M PRN BUCCAL DECREASED GLUCOSE; Start 07/17/18 at 09:30 Nifedipine (Procardia) 20 mg Q6 PO Last administered on 07/17/18at 13:59; Admin Dose 20 MG; Start 07/17/18 at 14:00 Cefazolin Sodium/ Dextrose 50 ml @ 100 mls/hr ONCE IVPB ; Start 07/17/18 at 15:30 Oxytocin/Lactated Ringer's 500 ml @ 125 mls/hr POST IV ; Start 07/17/18 at 15:30 Oxytocin/Lactated Ringer's 500 ml @ 0 mls/hr ONCE PRN IV .VAGINAL BLEEDING; Start 07/17/18 at 15:30 Carboprost Tromethamine (Hemabate) 250 mcg ONCE PRN IM .VAGINAL BLEEDING; Start 07/17/18 at 15:30 Misoprostol (Cytotec) 1,000 mcg ONCE PRN [place] .VAGINAL BLEEDING; Start 07/17/18 at 15:30 Meds reviewed: Yes Allergies Coded Allergies: No Known Drug Allergy (Verified Allergy, Unknown, 12/06/16) nut - unspecified (Verified Allergy, Unknown, 12/07/16) Allergies Reviewed: Yes Labs/Studies Labs Reviewed: Reviewed by anesthesiologist Result Diagram: 07/17/18 1523 07/17/18 1104 Laboratory Tests 07/17/18 11:04 07/17/18 15:23 test: Positive Pre-procedure Exam Last vitals Vital Signs Date Temp Pulse Resp B/P (MAP) Pulse Ox O2 O2 Flow FiO2 Time Delivery Rate 07/16/18 98.0 76 18 121/76 17:26 (91) Airway: Adequate mouth opening Mallampati: Mallampati II Teeth: Normal Lung: Normal Heart: Normal ASA Physical Status ASA physical status: 2 Emergency: None Planned Anesthetic Neuraxial: Spinal Planned Pain Management Sub-arachniod narcotics Pre-operative Attestations Prior to commencing anesthesia and surgery, the patient was re-evaluated, there was verification of: *The patient's identity *The results of appropriate recent lab work and preoperative vital signs *The above evaluation not changing prior to induction *Anesthetic plan, risk benefits, alternative and complications discussed with patient/family; questions answered; patient/family understands, accepts and wishes to proceed. JAVIER SANTOS MD July 17, 2018 16:15
[2018-07-17] MEDS ORDERED: OXYTOCIN 30 UNITS/LR 500 ML IV ONE (16:20)
[2018-07-17] MEDS ORDERED: ONDANSETRON 4 MG INJ ONE (16:21)
[2018-07-17] MEDS ORDERED: morphine SULFATE/PF (10 MG/10 ML) INJ ONE (16:21)
[2018-07-17] MEDS ORDERED: OXYTOCIN 10 UNIT INJ ONE (16:21)
[2018-07-17] MEDS ORDERED: METOCLOPRAMIDE 10 MG INJ ONE (16:21)
[2018-07-17] MEDS ORDERED: AZITHROMYCIN 500MG/NS (PMX) 250 ML IVPB ONE (16:30)
[2018-07-17] MEDS ORDERED: DEXAMETHASONE 4 MG/ML 1 ML INJ ONE (17:28)
[2018-07-17] MEDS ORDERED: MIDAZOLAM 1 MG/ML 2 ML INJ ONE (17:30)
[2018-07-17] MEDS ORDERED: LACTATED RINGER'S 1,000 ML IV SCH (18:23)
--- NOTE | 2018-07-17 18:28 | OPPN ---
Date/Time of Note Date/Time of Note DATE: 07/17/18 TIME: 18:25 Operative Report Planned Procedure Procedure date July 17, 2018 Procedure(s) Repeat Performed by see signature line Drive In Theater Attendant: YOSEPH FERNANDEZ MD [address] In Theater Attendant none Pre-procedure diagnosis 1.Prior x2 2. labor 3. heart rate tracing category 2 4.Polyhydramnios [id number] Anesthesia Type: [id number] spinal Post-Procedure Post-procedure diagnosis 1.Prior x2 2. labor 3. heart rate tracing category 2 4.Polyhydramnios Findings Live Baby [girl], Apgars [8] and [9], weight [3955 gr/8 pounds 12 ounces], [vertex] presentation EBL 500 cc IV fluid 1800 cc Urine output 400 cc Patient received Methergine x1, Hemabate x1 and 1000 Cytotec per rectum Estimated Blood Loss: 400 - 500 mls Specimen(s) Placenta Grafts/Implant(s) none Complication(s) none ADELE PERAZA MD July 17, 2018 18:28
[2018-07-17] MEDS ORDERED: ACETAMINOPHEN 325 MG TAB PO PRN (18:30)
[2018-07-17] MEDS ORDERED: METHYLERGONOVINE 0.2 MG INJ IM PRN (18:30)
[2018-07-17] MEDS ORDERED: SENNA/DOCUSATE NA (8.6MG/50MG) TAB PO PRN (18:30)
[2018-07-17] MEDS ORDERED: ONDANSETRON 4 MG INJ IV PRN ×2 (18:30→19:30)
[2018-07-17] MEDS ORDERED: BISACODYL 10 MG SUPP PR PRN (18:30)
[2018-07-17] MEDS: CEFAZOLIN 1 GM/50 ML (PMX) 50 ML IVPB SCH (18:30)
[2018-07-17] MEDS ORDERED: LANOLIN HPA 1 PKT TOP PRN (18:30)
--- NOTE | 2018-07-17 18:30 | OPR ---
Operative Report Planned Procedure Procedure date July 17, 2018 Procedure(s) Repeat Performed by see signature line Put In Beat Adjuster: YOSEPH FERNANDEZ MD Pre-procedure diagnosis 1.Prior x2 2. labor 3. heart rate tracing category 2 4.Polyhydramnios [id number] Anesthesia Type: [id number] spinal Post-Procedure Post-procedure diagnosis 1.Prior x2 2. labor 3. heart rate tracing category 2 4.Polyhydramnios Findings Live Baby [girl], Apgars [8] and [9], weight [3955 gr/8 pounds 12 ounces], [vertex] presentation EBL 500 cc IV fluid 1800 cc Urine output 400 cc Patient received Methergine x1, Hemabate x1 and 1000 Cytotec per rectum Estimated Blood Loss: 500 - 600 mls Specimen(s) Placenta Grafts/Implant(s) none Complication(s) none Pt Condition post procedure: stable Disposition: PACU Procedure Description Patient was taken to the operating room after adequate amount of anesthesia was given patient was prepped and draped in normal sterile fashion Low transverse Pfannenstiel skin incision was made. Incision was carried through to the underlying layer of fascia using Bovie Fascia was incised in the midline and incision was extended bilaterally using Bovie Both anterior and posterior edge of the fascia were from underlying layer of rectus muscles Rectus muscles were in the midline and peritoneum was identified and entered sharply without any difficulty Peritoneum was extended bilaterally manually. An Cassius retractor was placed 5 cm window noted in the lower uterine segment. Uterine incision was made well above the window on the uterus. Amnionic sac was ruptured and copious amount of amniotic fluid was obtained. Fetus was delivered from vertex presentation and after 30 seconds delayed cord clamping the fetus was handed immediately to the waiting ICU team. Placenta was delivered manually intact. Uterus was cleared off of all clots and debris. Uterine incision was closed with 1 Vicryl suture in both running locked and a second layer imbricating fashion Multiple irrigations were performed and excellent hemostasis was noted. Both adnexa appeared normal Surgicel was placed on the incision line. Cassius retractor was removed Peritoneal closure proceeded with 2-0 Vicryl in a running fashion. Rectus muscles were reapproximated with 2-0 Vicryl Surgicel was placed on the rectus muscles to provide further hemostasis Fascia was closed with 0-PDS suture on a loop in 2 separate segments in a running fashion Subcutaneous layer was closed with 0- plain suture in a continuous fashion Skin was closed with end-sorb jaylene and Dermabond glue All sponge, lap, needle counts were reported to be correct Patient tolerated the procedure well and taken back to recovery room in a stable condition ADELE PERAZA MD July 17, 2018 18:30
[2018-07-17] MEDS ORDERED: morphine 2 MG INJ IV PRN ×2 (19:30)
[2018-07-17] MEDS ORDERED: NALOXONE (0.4 MG/ML) INJ IV PRN (19:30)
[2018-07-17] MEDS ORDERED: DIPHENHYDRAMINE 50 MG INJ IV PRN (19:30)
[2018-07-17] MEDS ORDERED: EPHEDrine 25 MG/5 ML SYG IV PRN (19:30)
[2018-07-17] MEDS ORDERED: morphine SULFATE/PF (10 MG/10 ML) INJ SPINAL ONE (19:30)
--- NOTE | 2018-07-17 21:02 | PAC ---
Date/Time of Note Date/Time of Note DATE: 07/17/18 TIME: 21:02 Post-Anesthesia Notes Post-Anesthesia Note Last documented vital signs Vital Signs Date Temp Pulse Resp B/P (MAP) Pulse Ox O2 O2 Flow FiO2 Time Delivery Rate 07/17/18 116 18 136/77 96 Room Air 20:55 (96) 07/17/18 98.3 20:40 Activity: WNL Respiratory function: WNL Cardiovascular function: WNL Mental status: Baseline Pain reasonably controlled: Yes Hydration appropriate: Yes Nausea/Vomiting absent: Yes JAVIER SANTOS MD July 17, 2018 21:02
[2018-07-18 00:10] VITALS: BP 145/79; PULSE 109; RESP 19
[2018-07-18] MEDS: CEFAZOLIN 1 GM/50 ML (PMX) 50 ML IVPB SCH ×2 (02:11→10:17)
[2018-07-18 03:45] VITALS: BP 108/69; PULSE 95; RESP 18
[2018-07-18] MEDS ORDERED: OXYTOCIN 10 UNIT INJ ONE (05:52)
[2018-07-18] MEDS: KETOROLAC 30 MG INJ IV PRN ×2 (06:18→12:02)
[2018-07-18] MEDS: LACTATED RINGER'S 1,000 ML IV SCH ×3 (06:28→14:03)
[2018-07-18 08:00] VITALS: BP 126/75; PULSE 67; RESP 18
[2018-07-18] MEDS: PRENATAL VITAMIN PO SCH (09:30)
--- NOTE | 2018-07-18 09:36 | OPPN ---
Date/Time of Note Date/Time of Note DATE: 07/18/18 TIME: 09:33 Anesthesia Follow up Anesthesia Follow up Last documented vital signs Vital Signs Date Temp Pulse Resp B/P (MAP) Pulse Ox O2 O2 Flow FiO2 Time Delivery Rate 07/18/18 98.3 67 18 126/75 96 Room Air 08:00 (92) Respiratory function: WNL Cardiovascular function: WNL Comments Postoperative pain in good control with spinal duramorph. Vital signs stable. No specific complaints No spinal headache noted. JAVIER SANTOS MD July 18, 2018 09:36
[2018-07-18 12:34] VITALS: BP 109/73; PULSE 86; RESP 16
--- NOTE | 2018-07-18 12:53 | QN ---
Documentation Comment POD#1 is stable afebrile tolerates diet No VB +flatus adequate urine VS stable Gen NAD Abd soft NT ND dressing to be removed Genitalia No blood at perineum --->Ambulation GAYE LUCAS M.D. July 18, 2018 12:53
[2018-07-18 16:00] VITALS: BP 116/81; PULSE 72; RESP 18
[2018-07-18] MEDS: MAGNESIUM HYDROXIDE 30ML CUP PO PRN ×2 (18:28→20:53)
[2018-07-18] MEDS: IBUPROFEN 600 MG TAB PO PRN (18:29)
[2018-07-18] MEDS ORDERED: CEFAZOLIN 1 GM/50 ML (PMX) 50 ML IVPB SCH (18:30)
[2018-07-18 20:00] VITALS: BP 124/62; PULSE 76; RESP 20
[2018-07-18] MEDS: OXYCODONE/ACETAMINOPHEN (5/325) TAB PO PRN (20:54)
[2018-07-19] MEDS: OXYCODONE/ACETAMINOPHEN (5/325) TAB PO PRN ×4 (02:38→22:31)
[2018-07-19 03:57] VITALS: BP 122/64; PULSE 70; RESP 20
[2018-07-19] MEDS: IBUPROFEN 600 MG TAB PO PRN ×2 (08:12→17:18)
[2018-07-19] MEDS: PRENATAL VITAMIN PO SCH (08:12)
[2018-07-19 08:34] VITALS: BP 122/79; PULSE 79; RESP 18
--- NOTE | 2018-07-19 10:38 | QN ---
Documentation Comment Postop day #2 Status post repeat Patient stable and afebrile Vital signs stable VS - Last 72 Hours, by Label Date Temp Pulse Resp B/P (MAP) Pulse Ox O2 O2 Flow FiO2 Time Delivery Rate 07/19/18 98.2 79 18 122/79 Room Air 08:34 (93) 07/19/18 98.2 70 20 122/64 Room Air 03:57 (83) 07/18/18 98.1 76 20 124/62 Room Air 20:00 (82) 07/18/18 98.0 72 18 116/81 100 Room Air 16:00 (93) 07/18/18 97.7 86 16 109/73 99 Room Air 12:34 (85) 07/18/18 98.3 67 18 126/75 96 Room Air 08:00 (92) 07/18/18 98.5 95 18 108/69 95 Room Air 03:45 (82) 07/18/18 99.0 109 19 145/79 95 Room Air 00:10 (101) 07/17/18 98.1 106 19 129/78 94 Room Air 21:30 (95) 07/17/18 98.3 108 20 128/87 96 Room Air 21:25 (101) 07/17/18 117 18 118/81 96 Room Air 21:10 (93) 07/17/18 116 18 136/77 96 Room Air 20:55 (96) 07/17/18 98.3 111 19 132/77 95 Room Air 20:40 (95) 07/17/18 111 18 134/80 96 Room Air 20:25 (98) 07/17/18 129 18 139/80 97 Room Air 20:10 (99) 07/17/18 126 18 145/83 97 Room Air 19:55 (103) 07/17/18 114 18 129/70 97 Room Air 19:40 (89) 07/17/18 113 19 124/69 97 Room Air 19:25 (87) 07/17/18 97.7 119 19 130/69 98 Room Air 19:10 (89) 07/16/18 98.0 76 18 121/76 17:26 (91) Hematology - 72 Hrs Test 07/17/18 15:23 07/18/18 07:04 07/19/18 06:11 Hematocrit 38.0 % (37.0-47.0) 34.7 % (37.0-47.0) 31.8 % (37.0-47.0) L L Hemoglobin 12.8 11.8 10.7 g/dl (12.0-16.0) g/dl (12.0-16.0) g/dl (12.0-16.0) L L Mean Corpuscular 29.2 pg (29.0-33.0) 29.6 29.3 Hemoglobin pg (29.0-33.0) pg (29.0-33.0) Mean Corpuscular 33.7 34.0 33.6 Hemoglobin Concent g/dl (32.0-37.0) g/dl (32.0-37.0) g/dl (32.0-37.0) Mean Corpuscular 86.6 87.0 87.1 Volume fl (82.0-101.0) fl (82.0-101.0) fl (82.0-101.0) Mean Platelet 10.3 fl (7.4-10.4) 10.3 fl (7.4-10.4) 10.2 fl (7.4-10.4) Volume Platelet Count 230 232 217 10^3/UL (140-415) 10^3/UL (140-415) 10^3/UL (140-415) Red Blood Count 4.39 3.99 3.65 10^6/ul (4.20-5.40) 10^6/ul (4.20-5.40 10^6/ul (4.20-5.40 ) L ) L Red Cell 13.2 % (11.5-14.5) 13.3 % (11.5-14.5) 13.4 % (11.5-14.5) Distribution Width White Blood Count 9.6 19.4 12.3 10^3/ul (4.8-10.8) 10^3/ul (4.8-10.8) 10^3/ul (4.8-10.8) # #H #H Chemistry Test 07/16/18 18:22 07/17/18 07:42 07/17/18 11:04 07/17/18 11:58 Bedside 95 111 125 Glucose mg/dL (70-220) mg/dL (70-220) mg/dL (70-220) Sodium Level 139 mmol/L (135-14 4) Potassium 4.3 Level mmol/L (3.5-5. 1) Chloride Level 111 mmol/L (97-110 ) H Carbon Dioxide 19 Level mmol/L (21-31) L Anion Gap 9 (5-13) Blood Urea 10 Nitrogen mg/dl (7-20) Creatinine 0.54 mg/dl (0.44-1. 00) Est Glomerular > 60 Filtrat mL/min (>60) Rate mL/min Glucose Level 119 mg/dl (70-220) Calcium Level 8.8 mg/dl (8.4-10. 2) Total 0.5 Bilirubin mg/dl (0.2-1.3 ) Direct 0.00 Bilirubin mg/dl (0.00-0. 20) Indirect 0.5 Bilirubin mg/dl (0-1.1) Aspartate Amino 36 Transf (AST/SGO IU/L (15-46) T) Alanine 35 Aminotransferas IU/L (13-69) e (ALT/SGPT) Alkaline 188 Phosphatase IU/L (42-121) H Total Protein 6.6 g/dl (6.1-8.1) Albumin 3.2 g/dl (3.3-4.9) L Globulin 3.40 g/dl (1.3-3.2) H Albumin/Globuli 0.94 n Ratio Test 07/18/18 07:03 Sodium Level 133 mmol/L (135-144 ) L Potassium 4.4 Level mmol/L (3.5-5.1 ) Chloride Level 106 mmol/L (97-110) Carbon Dioxide 21 Level mmol/L (21-31) Anion Gap 6 (5-13) Blood Urea 12 mg/dl (7-20) Nitrogen Creatinine 0.65 mg/dl (0.44-1.0 0) Est Glomerular > 60 Filtrat mL/min (>60) Rate mL/min Glucose Level 153 mg/dl (70-220) Calcium Level 8.9 mg/dl (8.4-10.2 ) Total 0.5 Bilirubin mg/dl (0.2-1.3) Direct 0.00 Bilirubin mg/dl (0.00-0.2 0) Indirect 0.5 Bilirubin mg/dl (0-1.1) Aspartate Amino 47 IU/L (15-46) Transf (AST/SGO H T) Alanine 48 IU/L (13-69) Aminotransferas e (ALT/SGPT) Alkaline 155 Phosphatase IU/L (42-121) H Total Protein 6.0 g/dl (6.1-8.1) L Albumin 3.1 g/dl (3.3-4.9) L Globulin 2.90 g/dl (1.3-3.2) Albumin/Globuli 1.06 n Ratio Abdomen soft, fundus firm Incision clean,dry,intact Extremities nontender Assessment and plan Patient stable and doing well Encouraged to ambulate Continue with routine postop care ADELE PERAZA MD July 19, 2018 10:38
[2018-07-19 15:03] VITALS: BP 118/70; PULSE 80; RESP 20
[2018-07-19 20:02] VITALS: BP 119/81; PULSE 67; RESP 18
[2018-07-20] MEDS: OXYCODONE/ACETAMINOPHEN (5/325) TAB PO PRN (04:04)
[2018-07-20 04:25] VITALS: BP 107/59; PULSE 69; RESP 20
[2018-07-20] MEDS: IBUPROFEN 600 MG TAB PO PRN ×2 (06:14→12:47)
[2018-07-20 08:20] VITALS: BP 138/75; PULSE 75; RESP 18
[2018-07-20] MEDS: PRENATAL VITAMIN PO SCH (09:23)
--- NOTE | 2018-07-20 10:32 | QN ---
Documentation Comment POD#3is stable afebrile tolerates diet No VB +Bm +VOIDS VS stable Gen NAD Abd soft NT ND Incision intact Genitalia No blood at perineum --->Ambulation ---->Discharged with precautions GAYE LUCAS M.D. July 20, 2018 10:32
--- NOTE | 2018-07-20 10:33 | DS ---
Date/Time of Note Date/Time of Note DATE: 07/20/18 TIME: 10:32 Discharge Summary Admission/Discharge Info Admit Date/Time July 16, 2018 at 21:41 Discharge Date/Time 07/20/2018 Discharge Diagnosis Patient Condition: Good Hospital Course uneventful Home Meds Reported Medications [id number] Acid ([place] Chewable) 1 Each Tab.chew, 1 TAB PO DAILY, TAB.CHEW 12/02/16 Primary Care Provider Care Physician No Primary GAYE LUCAS M.D. July 20, 2018 10:33
--- NOTE | 2018-07-20 14:23 | NSTRPT ---
NST Information Datetime Report Generated by CPN: 07/20/2018 14:23 Datetime: 07/16/2018 15:30 NST Information EGA: 34.3 Test Number: 1 Time on Monitor: 07/16/2018 15:47 Time off Monitor: 07/16/2018 16:37 NST Duration (Min): 50 Reason for NST Other: A2DM Pulse: 66 Resp: 16 SBP: 123 DBP: 81 Test Evaluation NST Interventions: Acoustic Stimulation Patient States Movement: Present Contraction Frequency: 0 FHR Baseline : 150 Variability: Minimal - <=5bpm Accelerations: 10X10 Decelerations: None FHR Category: Category II NST Results: Non-Reactive Comments: PT TO U/S US-CEPLAIC FRANCISCO-29.7CM FBS-88 2HR PP-110 Electronically Signed By E-Signature: with User ID: [id number]
--- NOTE | 2018-07-21 14:58 | DELSUM ---
Delivery Summary A-C Datetime Report Generated by CPN: 07/21/2018 14:58 DELIVERY PERSONNEL Java [employer] Developer: Sera Noela MATERNAL INFORMATION Delivery Anesthesia: Spinal Medications in Delivery: SEE ANESTHESIA Placenta Cultured: Yes Maternal Complications: Other Other Maternal Complications: GDM PTL, POLY HDRAMNIOS CAT II TRACING LABOR SUMMARY EDC: 08/24/2018 00:00 No. Babies in Womb: 1 Attempted: No Labor Anesthesia: None LABOR INFORMATION Reason for Induction: Maternal Diabetes; Polyhydramnios Reason for Induction- Other: CAT II STRIP Onset of Labor: 07/17/2018 10:00 Oxytocin: N/A Group B Beta Strep: Not Done Antibiotics # of Doses: X2 DOSE Antibiotics Time of Last Dose: 07/17/2018 16:50 Steroids Given: Partial Course Reason Steroids Not Administered: Other MEMBRANES Membranes Rupture Method: Artificial Rupture of Membranes: 07/17/2018 17:10 Length of Rupture (hr): 0.03 Amniotic Fluid Color: Clear Amniotic Fluid Amount: Large Amniotic Fluid Odor: None STAGES OF LABOR Stage 3 hr: 0 Stage 3 min: 3 Total Time in Labor hr: 7 Total Time in Labor min: 15 CSECTION DELIVERY Primary Indication: Repeat Elective Secondary Indication: Repeat Elective CSection Urgency: Emergency CSection Incidence: Repeat Labor: Labor Elective: Elective CSection Incision: Lower Uterine Transverse BABY A INFORMATION Delivery Date/Time: 07/17/2018 17:12 Method of Delivery: Born in Route : No : N/A Forceps: N/A Vacuum Extraction: N/A Shoulder Dystocia : N/A SHOULDER DYSTOCIA BABY A Infant Delivery Date/Time: 07/17/2018 17:12 PRESENTATION/POSITION BABY A Presentation: Cephalic Cephalic Presentation: Vertex Vertex Position: Left Occipital Anterior Breech Presentation: N/A PLACENTA INFORMATION BABY A Placenta Delivery Time : 07/17/2018 17:15 Placenta Method of Delivery: Manual Removal Placenta Status: Delivered SCORES BABY A Heart Rate 1 min: >100 bpm Resp Effort 1 min: Good Cry Reflex Irritability 1 min: Cough/Sneeze/Pulls Away Muscle Tone 1 min: Active Motion Color 1 min: Blue/Pale Resuscitation Effort 1 min: Tactile Stimulation; Oxygen SCORE 1 MIN: 8 Heart Rate 5 min: >100 bpm Resp Effort 5 min: Good Cry Reflex Irritability 5 min: Cough/Sneeze/Pulls Away Muscle Tone 5 min: Active Motion Color 5 min: Body [place], Extremit Blue Resuscitation Effort 5 min: Tactile Stimulation SCORE 5 MIN: 9 INFORMATION BABY A Gestational Age at Delivery: 34.4 Gestational Status: Late - 34- 36.6 Weeks Condition : Stable Sex: Female IDENTIFICATION/MEDS BABY A ID Band Number: [id number] ID Band Location: Right Leg; Left Leg; Taped to Bed Sensor Applied: No Sensor Location : Cord Clamp Vitamin K Given : Not Given Erythromycin Given: Not Given WEIGHT/LENGTH BABY A Infant Birthweight (gm): 3955 Infant Weight (lb): 8 Weight (oz): 12 Length (in): 21.50 Infant Length (cm): 54.61 CORD INFORMATION BABY A No. Cord Vessels: 3 Nuchal Cord : N/A Cord Blood Taken: Yes Infant Suction: Mouth; Nose ASSESSMENT BABY A Infant Complications: Other Physical Findings at Delivery: Other Infant Respirations: Appears Normal Police Inspector/ALS Called : No Transferred To: NICU
== END 2018-07-20 14:57 | disposition home or self-care (01) | DRG 788 ==
LOC: OBT 17:04 → L-D 17:06 → OBT 21:41 → L-D 22:56 → PP1 07-17 21:35
PROVIDERS: ADMIT Obstetrics & Gynecology; ATTEND Obstetrics & Gynecology
PROC: 4A1HXCZ Monitoring of Products of Conception, Cardiac Rate, External Approach (ICD-10-PCS; principal; 2018-07-16)
PROC: 10D00Z1 Extraction of Products of Conception, Low, Open Approach (ICD-10-PCS; 2018-07-17)
DX: O60.14X0 Preterm labor third trimester with preterm delivery third trimester, not applicable or unspecified (principal); O36.8130 Decreased fetal movements, third trimester, not applicable or unspecified; Z3A.34 34 weeks gestation of pregnancy; O24.410 Gestational diabetes mellitus in pregnancy, diet controlled; O40.3XX0 Polyhydramnios, third trimester, not applicable or unspecified; E66.9 Obesity, unspecified; Z68.36 Body mass index [BMI] 36.0-36.9, adult; O34.219 Maternal care for unspecified type scar from previous cesarean delivery; Z37.0 Single live birth
CPT/HCPCS: 36415; 76815; 76817; 76818; 80053; 81001; 82731; 82962; 85025; 85610; 85730; 86592; 86703; 86803; 86850; 86900; 86901; 87086; 88307; 96360; 96361; 99464; G0463; J0456; J0690; J0702; J1100; J1815; J1885; J2210; J2250; J2274; J2405; J2590; J2765; J3105; J3475; J7120